=== PATIENT | female | born 1985 | race Two or more races ===

== ENCOUNTER 2023-12-19 11:06 | Emergency (ER) | payer OTHER, MEDICAID ==
[~2023-12-19] VITALS: Ht 162.6 cm; Wt 98.0 kg
[2023-12-19] MEDS: KETOROLAC TROMETH 60MG/2ML VIAL IM ONE (11:45)
[2023-12-19 12:18] VITALS: TEMP 98.6
[2023-12-19] MEDS: FAMOTIDINE 20 MG TAB PO ONE (12:23)
[2023-12-19] MEDS: ONDANSETRON ODT 4 MG TAB PO ONE (12:24)
[2023-12-19 13:25] VITALS: PULSE 81; RESP 14; O2SAT 100
[2023-12-19 13:29] LABS: Basophils # (auto) 0.1 10 ^3/uL (0-0.2); Basophils % (auto) 0.6 % (0.0-2.0); Eosinophils # (auto) 0.1 10 ^3/uL (0-0.8); Eosinophils % (auto) 0.9 % (0.0-7.0); Hematocrit 40.4 % (36.0-46.0); Hemoglobin 13.1 g/dL (12.2-16.2); Lymphocytes # (auto) 2.7 10 ^3/uL (0.4-5.4); Lymphocytes % (auto) 26.7 % (10.0-50.0); Mean Corpuscular Hemoglobin 27.7 pg (28.0-32.0); Mean Corpuscular Hgb Conc. 32.5 g/dL (32.0-36.0); Mean Corpuscular Volume 85.4 fL (80.0-100.0); Monocytes # (auto) 0.5 10 ^3/uL (0-1.3); Neutrophils # (auto) 6.9 10 ^3/uL (1.6-8.6); Neutrophils % (auto) 66.8 % (37.0-80.0); Platelet Count (auto) 443 10^3/uL (140-450); Red Blood Cells 4.73 10^6/uL (4.0-5.20); Red Cell Distribution Width 13.5 % (11.8-14.3); White Blood Cell 10.3 10^3/uL (4.4-10.8)
[2023-12-19 13:47] LABS: Alanine Aminotransferase 26 U/L (7-40); Albumin 4.6 g/dL (3.2-4.8); Alkaline Phosphatase 155 U/L (46-116); Anion Gap 8 (5-15); Aspartate Aminotransferase 29 U/L (13-40); BUN/Creatinine Ratio 10.8 (10.0-20.0); Bilirubin, Total 0.3 mg/dL (0.2-1.0); Blood Urea Nitrogen 7 mg/dL (9-23); Calcium 9.9 mg/dL (8.7-10.4); Carbon Dioxide 28 mmol/L (20-31); Chloride 102 mmol/L (98-107); Glucose 164 mg/dL (74-106); Potassium 4.6 mmol/L (3.5-5.1); Sodium 138 mmol/L (136-145); Total Protein 7.4 g/dL (5.7-8.2)
[2023-12-19 13:54] LABS: Urine Bacteria FEW /hpf (None Seen); Urine Blood 3+ /uL (Negative); Urine Protein, UAD 1+ (Negative); Urine Specific Gravity 1.016 (1.001-1.035); Urine Urobilinogen Normal (Negative); Urine WBC 11 /hpf (0 - 5)
[2023-12-19 14:00] LABS: Urine Clarity Cloudy (Clear); Urine Color Light-Yellow (Yellow)
[2023-12-19 15:19] VITALS: BP 134/76; PULSE 79; RESP 18; O2SAT 98
[2023-12-19] MEDS ORDERED: CEPH500C PO (15:33)
[2023-12-19] MEDS: cefTRIAXone W LIDOCAINE 1 GM IM IM ONE (15:47)
== END 2023-12-19 16:00 | disposition home or self-care (01) ==
LOC: ER 11:06
DX: E11.65 Type 2 diabetes mellitus with hyperglycemia (principal); R10.2 Pelvic and perineal pain; N39.0 Urinary tract infection, site not specified; Z90.49 Acquired absence of other specified parts of digestive tract; Z88.1 Allergy status to other antibiotic agents
CPT/HCPCS: 36415; 74176; 80053; 81001; 82962; 84484; 84702; 85025; 96372; 99285; J0696; J1885; Q0162